=== PATIENT | male | born 1980 | race Caucasian/White ===

== ENCOUNTER 2024-06-12 08:00 | Inpatient (IN) ==
[2024-06-19] MEDS ORDERED: LORazepam 2 mg VIAL 1 ml IV PUSH PRN ×2 (09:19)
[2024-06-19] MEDS ORDERED: Lorazepam PYXIS KEY PRN (09:28)
[2024-06-21 08:20] VITALS: BP 123/80
== END 2024-06-21 13:06 | disposition home or self-care (01) | DRG 53 ==
LOC: MEDTELE 06-19 07:59
PROVIDERS: ADMIT Psychiatry & Neurology Neurology; ATTEND Psychiatry & Neurology Neurology